=== PATIENT | female | born 1985 | race Caucasian/White ===

== ENCOUNTER 2017-05-30 15:07 | Inpatient (IN) | payer OTHER ==
[2017-05-30 15:28] VITALS: BMI 29.2
[2017-05-30] MEDS ORDERED: Lactated Ringer's 1,000 ML IV ONE (15:30)
[2017-05-30] MEDS ORDERED: Lactated Ringer's 1,000 ML IV SCH ×2 (15:33→22:30)
[2017-05-30 17:03] LABS: BASO % 0.3 % (0.0-2.0); EOS # 0.1 K/uL (0.0-0.7); EOS % 1.5 % (0.0-4.0); HEMOGLOBIN 12.6 g/dL (12.0-16.0); LYMPH # 2.2 K/uL (1.0-4.3); LYMPH % 24.8 % (20.0-40.0); MEAN CELL VOLUME 85.6 fl (81.0-99.0); MEAN CORPUSCULAR HEMOGLOBIN 28.2 pg (27.0-31.0); MEAN CORPUSCULAR HGB CONC 32.9 g/dL (33.0-37.0); MEAN PLATELET VOLUME 8.3 fl (7.2-11.7); MONO % 10.9 % (0.0-10.0); NEUT # 5.5 K/uL (1.8-7.0); NEUT % 62.5 % (50.0-75.0); RBC 4.48 Mil/uL (3.80-5.20); RED CELL DISTRIBUTION WIDTH 14.6 % (11.5-14.5); WHITE BLOOD COUNT 8.8 K/uL (4.8-10.8)
--- NOTE | 2017-05-30 18:01 | OBADHP ---
Datetime: 05/30/2017 17:51 Admit Comment, IP Provider: pt very unconfortable and post dates Admitted and for agumentation Extremities - PN: Normal Abdomen - PN: Abnormal Back - PN: Normal Breast - PN: Normal Lungs - PN: Normal Thyroid - PN: Normal Neurologic - PN: Normal HEENT - PN: Normal General - PN: Normal Presentation-Admit: Transverse FHR - Baseline A Provider: 150 Membranes, Provider: Intact Contraction Comments Provider: irregular Comments, ACOG Physical Exam: abd soft NT gravid fundus at 37 wks Ext Gestation - Est Wks by US: 40 w6d IP Hx Assessment: The History has been Reviewed and is Current IP Chief Complaint: Uterine contractions; Maternal discomfort NICHD Variability Prov Fetus A: Minimal - Undetectable to <5bpm NICHD Decel Fetus A IP Provider: None Dilatation, Provider: FT to 1cm Genitourinary Exam: Normal DTRs - PN: Normal IP Adm Impression: Postterm, intrauterine IP Admit Plan: Admit to unit; Initiate labor augmentation protocol
[2017-05-30] MEDS ORDERED: Fentanyl/Bupivacaine HCl 250 ML EPI ONE (22:55)
[2017-05-30] MEDS ORDERED: Bupivacaine HCl 0.25% PF (10 ml) Inj ONE (22:55)
[2017-05-31] MEDS ORDERED: Oxytocin 30 units/LR 500ML 30 U/500 ML BAG IV ONE (02:58)
[2017-05-31] MEDS: cefOXitin Sodium 1 GM in Sodium Chloride 0.9% 100 ML IVPB SCH ×3 (03:15→20:16)
[2017-05-31] MEDS ORDERED: Lidocaine 2% PF (10 ml) Amp ONE (03:39)
[2017-05-31] MEDS ORDERED: EPINEPHrine 1 mg/ml (1:1000) Inj ONE (03:47)
[2017-05-31] MEDS ORDERED: Midazolam 2 MG/2 ML VIAL ONE (04:14)
[2017-05-31] MEDS ORDERED: Morphine 1 mg/ml preservative-free Inj(Duramorph) ONE (04:24)
[2017-05-31] MEDS ORDERED: Oxytocin 30 units/LR 500ML 30 U/500 ML BAG IV SCH (04:39)
[2017-05-31] MEDS ORDERED: Oxycodone/Acetaminophen 5/325 mg Tab PO PRN (04:39)
[2017-05-31] MEDS ORDERED: Lactated Ringer's 1,000 ML IV SCH (05:10)
[2017-05-31] MEDS ORDERED: ePHEDrine 50 mg/ml Inj ONE (05:20)
[2017-05-31] MEDS ORDERED: Morphine 1 mg/ml preservative-free Inj(Duramorph) EPI ONE (07:00)
[2017-05-31] MEDS ORDERED: DiphenhydrAMINE 50 mg/ml Inj IVP PRN (07:03)
--- NOTE | 2017-05-31 10:36 | OBDS ---
DELIVERY PERSONNEL Delivery Doctor: Celeste Mendoza MD Scrub Nurse: Ryann Terry OBT Mold Tooler: Mabel Escobedo RN Anesthesiologist: Vasiliy Yeboah MD MATERNAL INFORMATION Delivery Anesthesia: Epidural Medications in Delivery: PITOCIN Estimated Blood Loss (ml): 800 Placenta Cultured: No Maternal Complications: None; Other Other Maternal Complications: INTOLERANCE TO LABOR, TACHYCARDIA RN Comments: MOM HELD THE INFANT, SKIN TO SKIN BONDING NOT DONE IN DR MOM TIRED AND SLEEPY Provider Comments: see dictated OR surgeons note LABOR SUMMARY EDC: 05/24/2017 00:00 No. Babies in Womb: 1 Labor Anesthesia: Epidural LABOR INFORMATION Reason for Induction: Postterm Cervical Ripening Agents: Cervidil Group B Beta Strep: Negative Antibiotics Time of Last Dose: MEFOXIN , 1 GRAM Steroids Given: None Reason Steroids Not Administered: Not Applicable MEMBRANES Membranes Rupture Method: Artificial Rupture of Membranes: 05/31/2017 03:59 Length of Rupture (hrs): 0.02 Amniotic Fluid Color: Clear Amniotic Fluid Amount: Moderate Amniotic Fluid Odor: Normal STAGES OF LABOR Stage 3 hrs: 0 Stage 3 min: 0 VAGINAL DELIVERY Episiotomy: None Laceration Extension: N/A Laceration Type: None Sponge Count Correct: Yes Sharps Count Correct: Yes Count Comment: count correct x3 CSECTION DELIVERY Primary Indication: Other Other Primary Indication: INTOLERANCE TO LABOR Secondary Indication: tachycardia Other Secondary Indication: TACHYCARDIA CSection Urgency: Emergency CSection Incidence: Primary Elective: Nonelective CSection Incision: Lower Uterine Transverse Uterine Closure: Double-layer closure BABY A INFORMATION Infant Delivery Date/Time: 05/31/2017 04:00 Method of Delivery: Born in Route : No : N/A Forceps: N/A Vacuum Extraction: N/A Shoulder Dystocia : No SHOULDER DYSTOCIA BABY A Delivery Date/Time: 05/31/2017 04:00 PRESENTATION/POSITION BABY A Presentation: Cephalic Cephalic Presentation: Vertex Vertex Position: Left Occipital Anterior Breech Presentation: N/A PLACENTA INFORMATION BABY A Placenta Delivery Time : 05/31/2017 04:00 Placenta Method of Delivery: Manual Removal Placenta Status: Delivered SCORES BABY A Heart Rate 1 min: >100 bpm Resp Effort 1 min: Good Cry Reflex Irritability 1 min: Cough or Sneeze or Pulls Away Muscle Tone 1 min: Active Motion Color 1 min: Body [place], Extremities Blue SCORE 1 MIN: 9 Heart Rate 5 min: >100 bpm Resp Effort 5 min: Good Cry Reflex Irritability 5 min: Cough or Sneeze or Pulls Away Muscle Tone 5 min: Active Motion Color 5 min: Body [place], Extremities Blue SCORE 5 MIN: 9 INFORMATION BABY A Gestational Age at Delivery: 41.0 Gestational Status: Term Infant Outcome : Liveborn Infant Condition : Stable Infant Sex: Female IDENTIFICATION/MEDS BABY A ID Band Number: [id number] ID Band Location: Left Leg; Left Arm WEIGHT/LENGTH BABY A Infant Birthweight (gms): 4040 Weight (lb): 8 Infant Weight (oz): 14 CORD INFORMATION BABY A No. Cord Vessels: 3 Nuchal Cord : Around Neck x1, Loose Cord Blood Taken: Yes Suction: Mouth; Nose ASSESSMENT BABY A Infant Complications: None Physical Findings at Delivery: Within Normal Limits Respirations: Appears Normal Chronometer Assembler And Adjuster/ALS Called : No Infant Care By: DR WILLARD / MELINDA GOULD RN Transferred To: [facility] RESUSCITATION BABY A Resuscitation Effort: Tactile Stimulation
[2017-06-01] MEDS: cefOXitin Sodium 1 GM in Sodium Chloride 0.9% 100 ML IVPB SCH (05:15)
[2017-06-01 07:40] LABS: HEMOGLOBIN 11.1 g/dL (12.0-16.0); MEAN CELL VOLUME 87.1 fl (81.0-99.0); MEAN CORPUSCULAR HEMOGLOBIN 28.6 pg (27.0-31.0); MEAN CORPUSCULAR HGB CONC 32.8 g/dL (33.0-37.0); RBC 3.89 Mil/uL (3.80-5.20); RED CELL DISTRIBUTION WIDTH 14.9 % (11.5-14.5); WHITE BLOOD COUNT 15.3 K/uL (4.8-10.8)
--- NOTE | 2017-06-01 08:54 | OBPPN ---
Datetime: 06/01/2017 08:49 PP Pain Prov: Within normal limits PP Nausea Prov: Denies PP Flatus Prov: Yes PP BM Prov: No PP Breasts Prov: Normal PP Lungs Prov: Normal PP Abdomen/Uterus Prov: Abnormal PP Lochia Prov: Normal PP Vulva/Perineum Prov: Normal PP CVA Tenderness Prov: Normal PP Extremities Prov: Normal PP C/S Incision Prov: Normal PP Progress Prov: Normal PP Comments Phys Exam Prov: abd soft not distended fundus firm below umb. Incision clean no active bleeding or suppt Ext no calf tenderness no edema PP Impression Prov: Normal progression PP Plan Prov: Continue present management PP Progress Note Prov: OOB and ambulation Continue PP and po care IP PP Procedures: None
--- NOTE | 2017-06-02 12:02 | OBPPN ---
Datetime: 06/02/2017 11:56 PP Pain Prov: Within normal limits PP Pain Prov comment: No SOB, chest pains or leg pains PP Nausea Prov: Denies PP Flatus Prov: Yes PP BM Prov: Yes PP Nausea Prov comment: voiding well PP Breasts Prov: Normal PP Lungs Prov: Normal PP Abdomen/Uterus Prov: Abnormal PP Lochia Prov: Normal PP Vulva/Perineum Prov: Normal PP CVA Tenderness Prov: Normal PP Extremities Prov: Normal PP C/S Incision Prov: Normal PP Progress Prov: Normal PP Comments Phys Exam Prov: Breast not engorged NT; Abd soft ND, fundus firm below the umb. Incisio n clean and dry no suppt or discharge No calf tenderness PP Impression Prov: Normal progression PP Plan Prov: Continue present management PP Progress Note Prov: Continue PO care OOB and ambulation IP PP Procedures: None
[2017-06-02] MEDS: cefOXitin Sodium 1 GM in Sodium Chloride 0.9% 100 ML IVPB SCH (12:45)
--- NOTE | 2017-06-03 00:04 | OP ---
PROCEDURE DATE: 05/31/2017 PREOPERATIVE DIAGNOSES: 1. at term. 2. intolerance to labor. 3. tachycardia far from delivery POSTOPERATIVE DIAGNOSES: 1. at term. 2. Nuchal cord x1. PROCEDURE PERFORMED: Primary low-transverse segment section. SURGEON: Dr. Mendoza. DRUPAL PROGRAMMER: Dr Stephanie Fontana, Dr Jackson, Dr Fontana assistancde was needed in order to provide positioning of the patient, delivery of the baby and opening and closure of the abdomen. ANESTHESIA USED: Epidural per Dr. Cruz. ESTIMATED BLOOD LOSS: 800 mL. DRAINS USED: None. REPLACEMENTS USED: None. FINDINGS: 1. Delivered living baby girl, baby appears large for gestational age, baby cries spontaneously, pediatrist in attendance, score of 9 and 9. 2. Nuchal cord x1, loose. 3. Placenta complete and intact. 4. Amniotic fluid clear. 5. Both tubes and ovaries appeared grossly within normal limits to inspection bilaterally. DESCRIPTION OF PROCEDURE: The patient was taken to the operating room and placed on the operating table in supine position with an indwelling Quiroga catheter in the bladder draining pinkish urine. At this time, we then proceeded to augment the anesthesia, anesthesia augmented and Venodyne boots were applied to both legs. The abdomen was then draped and prepped in the usual sterile manner. Anesthesia tested and found to be well secure and a Pfannenstiel incision was then made using sharp dissection 2 fingerbreadths above the symphysis pubis. The incision was then extended down to subcutaneous tissue also using sharp dissection. Hemostasis obtained by means of electrocoagulation. Fascia was then identified, was then entered in the midline incision and the fascia was then extended laterally on each direction. Rectus muscle was then identified as slit at the midline exposing the peritoneum. Peritoneal layer was then picked up using 2 Tracey clamps, retracted superiorly and then entered using sharp dissection. Incision in the peritoneum was then extended superiorly and inferiorly under direct visualization. The bladder was then identified, retracted inferiorly using the Rye retractor. At this time, the low transverse segment of the uterus was identified. The visceroperitoneum was then entered, and using blunt dissection, a bladder flap created and retracted inferiorly using the same Carmina retractor. An incision was then made in the low transverse segment of the uterus upon entering the uterine cavity. Clear fluid noted to be present. The incision was then extended laterally on each direction using bandage scissors. Using the manual scooping procedure, living baby girl was then delivered. The baby appears to be large for gestational age. The baby cried spontaneously, was aspirated using the bulb suction. The umbilicus was then doubly clamped, cut and the baby handed to the pediatric personnel who was standing by. Samples of cord blood were then obtained and the placenta was then delivered complete and intact. At this time, we then proceeded to exteriorize the uterus to provide better visualization. The uterine cavity was then cleaned using moist lap pads. The uterus massaged and contracted well. The incision was then held using multiple declamps and approximated using 0 Vicryl suture in a continuous interlocking manner. A second layer was also applied using 0 Vicryl suture also in a continuous manner. At this time, we then proceeded to approximate the bladder flap using a 2-0 Rapide in a continuous manner. All operative areas checked, hemostatically secured. Free amniotic fluid and blood evacuated from the pelvic cavity. The uterus was then allowed to retract back into its original position. Again, all operative areas checked, hemostatically secured. Both tubes and ovaries have been inspected and found to be grossly within normal limits to inspection bilaterally. At this time, the peritoneum was then closed using 0 Vicryl suture in a continuous manner, and following this, we then proceeded to approximate the rectus muscle at the midline using 0 Vicryl suture in a continuous manner. The fascia was then identified, was then approximated using 1 Vicryl suture in a continuous manner. The fascia was then checked and found to be free of defect. Subcutaneous tissue irrigated using saline solution and approximated using several interrupted 2-0 plain sutures. The skin was then approximated using a 3-0 Prolene in a subcuticular fashion. Steri-Strips were then applied. The patient tolerated the procedure well. There were no complications. She was transferred to the recovery room in satisfactory condition. Sponge, instrument and needle count correct x3. Clear fluid noted to be present in the Quiroga bag at this time. Mesfin Mendoza MD [facility] # [id number] MTDD
--- NOTE | 2017-06-03 06:26 | OBDCSUM ---
Datetime: 06/03/2017 06:23 Discharged to, Provider: Home Follow up at, Provider: Dr Mendoza Disch Instr Activity: Bedrest; May be up to bathroom; May be up for meals; May Shower Disch Instr Diet: Regular Discharge Instructions, Provider: Routine instructions given Discharge Diagnosis, Provider: Term Delivered Discharge Time: 06/03/2017 06:24 Follow up in weeks, Provider: 1 wk Disch Referrals: None Contraception discussed, Prov: Yes Disch Activity Restrictions: No exercising; No lifting; No driving; Minimize walking; Minimize stair -climbing; No sexual activity; Nothing in vagina - [place], tampons, douche Discharge Comment, Provider: Rx for Percocet given Pelvic and bed rest Contraception after Delivery: Undecided
--- NOTE | 2017-06-03 06:26 | OBPPN ---
Datetime: 06/03/2017 06:18 PP Pain Prov: Within normal limits PP Pain Prov comment: no SOB, chest pain or leg pain PP Nausea Prov: Denies PP Flatus Prov: Yes PP BM Prov: Yes PP Nausea Prov comment: voiding well PP Breasts Prov: Normal PP Lungs Prov: Normal PP Abdomen/Uterus Prov: Abnormal PP Lochia Prov: Normal PP Vulva/Perineum Prov: Normal PP CVA Tenderness Prov: Normal PP Extremities Prov: Normal PP C/S Incision Prov: Normal PP Progress Prov: Normal PP Comments Phys Exam Prov: Abd soft ND, fundus firm below the umb, incisiion clean and dry no suppt or discharge. Ext no calf tenderness PP Impression Prov: Normal progression PP Plan Prov: Discharge PP Progress Note Prov: D/C home with appt to office 1wk Instructions given IP PP Procedures: None Vital Signs Provider PP: Reviewed
[2017-06-03 17:54] VITALS: BP 113/62; PULSE 69; RESP 18; TEMP 97.3; O2SAT 100
== END 2017-06-03 13:50 | disposition home or self-care (01) | DRG 766 ==
LOC: H.EROB2 15:07 → H.L&D 15:36 → H.OB/GYN 05-31 10:52
PROVIDERS: ADMIT Specialist; ATTEND Specialist
PROC: 4A1HXCZ Monitoring of Products of Conception, Cardiac Rate, External Approach (ICD-10-PCS; 2017-05-30)
PROC: 10D00Z1 Extraction of Products of Conception, Low, Open Approach (ICD-10-PCS; principal; 2017-05-31)
DX: O48.0 Post-term pregnancy (principal); O36.63X0 Maternal care for excessive fetal growth, third trimester, not applicable or unspecified; O76 Abnormality in fetal heart rate and rhythm complicating labor and delivery; O69.81X0 Labor and delivery complicated by cord around neck, without compression, not applicable or unspecified; Z3A.40 40 weeks gestation of pregnancy; Z37.0 Single live birth